=== PATIENT | male | born 1955 | race Caucasian/White ===

== ENCOUNTER → 2017-09-06 | Outpatient (CLI) | payer OTHER ==
[~2017-09-06] VITALS: Ht 176.5 cm; Wt 90.7 kg
[~2017-09-06] MED LIST: CELEBREX200 MG PO; LEVAQUIN500 MG PO
== END | disposition home or self-care (01) ==
LOC: AMB 12:00
PROC: 0DJD8ZZ Inspection of Lower Intestinal Tract, Via Natural or Artificial Opening Endoscopic (ICD-10-PCS; principal; 2017-09-06)
DX: Z12.11 Encounter for screening for malignant neoplasm of colon (principal); K57.30 Diverticulosis of large intestine without perforation or abscess without bleeding; K64.8 Other hemorrhoids; E66.3 Overweight; N41.1 Chronic prostatitis; Z87.891 Personal history of nicotine dependence
CPT/HCPCS: J2250

== ENCOUNTER → 2017-10-18 | Outpatient (CLI) | payer OTHER | END | disposition home or self-care (01) | LOC: NUC 10-17 10:00 | DX: M41.85 Other forms of scoliosis, thoracolumbar region (principal); M47.892 Other spondylosis, cervical region; M47.897 Other spondylosis, lumbosacral region; M19.012 Primary osteoarthritis, left shoulder; M19.011 Primary osteoarthritis, right shoulder; M16.12 Unilateral primary osteoarthritis, left hip; M17.11 Unilateral primary osteoarthritis, right knee; M19.072 Primary osteoarthritis, left ankle and foot; M19.071 Primary osteoarthritis, right ankle and foot | CPT/HCPCS: 78306; A9503 ==